=== PATIENT | female | born 1950 | race Caucasian/White ===

== ENCOUNTER 2023-06-08 11:32 | Emergency (ER) | payer OTHER, SELFPAY ==
[2023-06-08 11:32] VITALS: BP 220/104; PULSE 87; RESP 16; TEMP 36.4; O2SAT 98
[2023-06-08 11:57] VITALS: BP 200/97; PULSE 87; RESP 20; O2SAT 98
[2023-06-08 12:10] LABS: Basophils Absolute Auto 0.1 K/mm3 (0.0-0.1); Basophils Percent Auto 0.6 % (0.2-1.2); Eosinophils Absolute Auto 0.2 K/mm3 (0-0.3); Eosinophils Percent Auto 2.1 % (0-4.4); Hemoglobin 13.8 g/dL (12.0-15.0); Immature Granulocyte Absolute 0.03 K/mm3 (0.00-0.031); Immature Granulocyte Percent A 0.3 % (0-0.5); Lymphocytes Absolute Auto 2.38 K/mm3 (0.9-3.2); Lymphocytes Percent Auto 22.5 % (18.3-44.2); Mean Corpuscular HGB Conc 32.9 g/dl (32-36); Mean Corpuscular Hemoglobin 28.5 pg (26-34); Mean Corpuscular Volume 86.8 fl (80-100); Mean Platelet Volume 10.6 fl (7.4-10.4); Monocytes Absolute Auto 0.8 K/mm3 (0.1-0.6); Monocytes Percent Auto 7.8 % (2.6-8.5); Neutrophils Absolute Auto 7.1 K/mm3 (1.3-6.7); Neutrophils Percent Auto 66.7 % (45.5-73.1); Platelet Count Result 221 k/mm3 (150-375); Red Blood Count 4.84 M/mm3 (4.2-5.4); White Blood Count 10.6 K/mm3 (4.5-10.0)
[2023-06-08] MEDS: ACETAMINOPHEN 325 MG TABLET 650 MG PO (12:11)
[2023-06-08 12:18] VITALS: BP 191/97
[2023-06-08 12:21] LABS: Anion Gap 5 mmol/L (8-16); Blood Urea Nitrogen 17 mg/dL (7-17); Calcium 9.5 mg/dL (8.4-10.2); Carbon Dioxide 28 mmol/L (22-30); Chloride 104 mmol/L (98-107); Estimated CRCL calculation 64 ml/min; Estimated Glomerular Filt Rate > 60; Glucose 106 mg/dL (65-110); Potassium 4.3 mmol/L (3.4-5.0); Sodium 137 mmol/L (137-145)
[2023-06-08 13:01] VITALS: BP 176/75; PULSE 70; RESP 18; O2SAT 99
--- NOTE | 2023-06-08 13:01 | ED.RECABL ---
HPI - Recheck/Abnormal Lab/Rx General Chief Complaint: Recheck/Abnormal Lab/Rx Stated Complaint: htn Time Seen by Provider: 06/08/23 11:59 History of Present Illness HPI narrative: Patient sent from PCP office for elevated blood pressure, with systolics in the 220s, patient denies any symptoms other than mild headache/anxiety about being in the hospital; no chest pain, difficult breathing, blurry vision, abd pain. Related Data Home Medications Medication Instructions Recorded Confirmed aspirin 81 mg chewable tablet 81 mg PO DAILY 11/15/19 10/09/21 blood sugar diagnostic (Contour #10 ea 11/15/19 10/09/21 Next Test Strips) blood-glucose meter (Contour Next #1 ea 11/15/19 10/09/21 EZ Meter) lancets (Microlet Lancet) #50 ea 11/15/19 10/09/21 Allergies Allergy/AdvReac Type Severity Reaction Status Date / Time Sulfa (Sulfonamide Allergy Severe unknown Verified 06/08/23 11:34 Antibiotics) codeine Allergy Unknown unknown Verified 06/08/23 11:34 Penicillins Allergy Unknown unknown Verified 06/08/23 11:34 piroxicam Allergy Unknown FACE Verified 06/08/23 11:34 SWELLING hydrocodone AdvReac Intermediate Nausea and Verified 06/08/23 11:34 Vomiting semaglutide [From Ozempic] AdvReac Intermediate Nausea Verified 06/08/23 11:34 vancomycin AdvReac Mild ITCHY Verified 06/08/23 11:34 SCALP AND FLUSH FACE DURING TRANSFUSION - NO RASH Review of Systems Review of Systems: CONST: No fever. HEENT: No sore throat C/V: No chest pain RESP: No cough GI: No abdominal pain : No dysuria. M/S: No joint pain. SKIN: No rash. NEURO: [Mild headache without focal numbness or weakness] PSYCH: [No depression] PMFSH Past Medical History Medical History Acute non-recurrent frontal sinusitis Acute right-sided back pain with sciatica Body mass index [BMI] 34.0-34.9, adult (04/12/18) Body mass index [BMI] 35.0-35.9, adult (09/08/17) Body mass index [BMI] 36.0-36.9, adult (09/09/15) GERD without esophagitis HLD (hyperlipidemia) HTN (hypertension) Polyosteoarthritis, unspecified Postmenopausal Sinus congestion Sore throat Streptococcus exposure Vitamin D deficiency Family History Family History Father Family history of congestive heart failure, Onset Age: 64 Family history of emphysema, Onset Age: 64 Sibling Family history of chronic obstructive pulmonary disease Social History Social History Smoking status: Never smoker Alcohol intake: never Lack of Transportation: No Lack of Food: Never True Current Housing: I Have Housing Concerned About Future Housing: No Difficulty Paying Gas/Electric Bills: No Difficulty Paying for Meds: No Currently Unemployed: No Education: High School Diploma/GED Difficulty w/ Childcare or Family Care: No Exam Narrative: EXAMINATION OF ORGAN SYSTEMS/BODY AREAS: Constitutional: Vital signs per nursing GENERAL:[No acute distress, non-toxic appearing.] HEAD: Normal with no signs of head trauma. EYES: EOMI, conjunctiva normal ENT: Hearing grossly intact LUNGS: Nonlabored breathing. HEART: [Regular rate and rhythm] ABD: [Soft], [nontender to palpation] EXT: Normal range of motion SKIN: [No rashes or lesions.] NEURO: [Alert and oriented x 3. No gross focal sensory or strength deficits.] PSYCH: Normal affect Course Vital Signs Vital signs: Vital Signs Temperature 97.6 F 06/08/23 11:32 Pulse Rate 87 06/08/23 11:32 Respiratory Rate 16 06/08/23 11:32 Blood Pressure 220/104 H 06/08/23 11:32 Pulse Oximetry 98 06/08/23 11:32 Temperature 97.6 F 06/08/23 11:32 Pulse Rate 70 06/08/23 13:01 Respiratory Rate 18 06/08/23 13:01 Blood Pressure 176/75 H 06/08/23 13:01 Pulse Oximetry 99 06/08/23 13:01 [facility] - Reche
[2023-06-08] MEDS: amLODIPine BESYLATE 5 MG TABLET PO (13:06)
== END 2023-06-08 13:10 | disposition home or self-care (01) ==
PROVIDERS: Emergency Provider Emergency Medicine; PCP Emergency Medicine
DX: I10 Essential (primary) hypertension (principal); E78.5 Hyperlipidemia, unspecified; E55.9 Vitamin D deficiency, unspecified; K21.9 Gastro-esophageal reflux disease without esophagitis; M19.90 Unspecified osteoarthritis, unspecified site; Z79.82 Long term (current) use of aspirin; Z79.84 Long term (current) use of oral hypoglycemic drugs
CPT/HCPCS: 36415; 80048; 85025; 99283; A9270